=== PATIENT | male | born 1995 | race Caucasian/White ===

== ENCOUNTER 2020-07-10 14:07 | Emergency (ER) | payer SELFPAY ==
[2020-07-10 16:38] LABS: #Monocytes 0.5 10x3/uL (0.0-1.1); #Neutrophils 8.4 10x3/uL (1.5-8.4); %Basophils 0.2 % (0.0-2.0); %Lymphocytes 9.3 % (18.0-47.0); %Monocytes 5.3 % (0.0-10.0); Hemoglobin 16.6 g/dL (13.5-17.5); Mean Corpuscular HGB CONC 33.9 g/dL (32.0-36.0); Mean Corpuscular Volume 91.4 fl (81.2-95.1); Mean Platelet Volume 10.1 fl (7.4-10.4); Platelet Count 270 10x3/uL (150-450); RBC Distribution Width 12.2 % (11.5-14.5); Red Blood Cell (RBC) Count 5.36 10x6/uL (4.32-5.72); White Blood Cell (WBC) Count 9.9 10x3/uL (3.5-10.5)
[2020-07-10 16:50] LABS: ALT (SGPT) 16 U/L (8-55); AST (SGOT) 18 U/L (5-34); Albumin 5.2 g/dL (3.5-5.0); Alkaline Phosphatase 74 U/L (40-110); Anion Gap 16 mmol/L (10-20); BUN (Urea Nitrogen) 14 mg/dL (8.9-20.6); Bilirubin, Total 1.1 mg/dL (0.2-1.2); CK (CPK) 69 U/L (30-200); Calc. Creatinine Clearance 0 mL/min (70-130); Calcium 10.1 mg/dL (7.8-10.44); Carbon Dioxide 25 mmol/L (22-29); Chloride 102 mmol/L (98-107); Globulin 2.4 g/dL (2.4-3.5); Glucose 117 mg/dL (70-105); Lipase 27 U/L (8-78); Potassium 4.6 mmol/L (3.5-5.1); Protein, Total 7.6 g/dL (6.0-8.3); Sodium 138 mmol/L (136-145)
== END 2020-07-10 17:10 | disposition home or self-care (01) ==
LOC: CSHERS 14:07
DX: R00.2 Palpitations (principal); F17.200 Nicotine dependence, unspecified, uncomplicated
CPT/HCPCS: 71045; 80053; 82550; 83690; 84484; 85025; 93005